=== PATIENT | female | born 1970 ===

== ENCOUNTER 2020-01-08 14:56 | Emergency (ER) | payer OTHER ==
[~2020-01-08] VITALS: Ht 160 cm; Wt 73.9 kg
[2020-01-08] MEDS ORDERED: OPTIMAL D31250 MCG PO (15:15)
[2020-01-08] MEDS ORDERED: LISINOPRIL10 MG PO (15:15)
[2020-01-08] MEDS ORDERED: SYNTHROID112 MCG PO (15:15)
[2020-01-08] MEDS ORDERED: ANASTROZOLE1 MG PO (15:16)
[2020-01-08] MEDS ORDERED: FORTAMET500 MG PO (17:07)
== END 2020-01-08 17:21 | disposition home or self-care (01) ==
LOC: ER 14:56
DX: R73.9 Hyperglycemia, unspecified (principal)